=== PATIENT | male | born 1990 | race Caucasian/White ===

== ENCOUNTER → 2017-01-30 | Outpatient (CLI) | payer BC ==
--- NOTE | 2017-01-30 07:41 | DIAGNOSTIC IMAGING REPORT ---
ABDOMINAL ULTRASOUND, RIGHT UPPER QUADRANT HISTORY: Right upper quadrant abdominal pain. Loose stools. COMPARISON: None. FINDINGS: Liver is sonographically normal. There is no biliary ductal dilatation. The common bile duct measures 3 mm in caliber. The gallbladder is normal. There are no gallstones. No pancreatic abnormality is are present. There is no right hydronephrosis. IMPRESSION: No significant abnormality identified within the right upper quadrant. Electronically signed by: Neel Hoang M.D. 01/30/2017 7:40 AM Dictated Date/Time: 01/30/2017 7:39 AM
== END | disposition home or self-care (01) ==
LOC: C.ULTR 06:38
PROVIDERS: ATTEND Nurse Practitioner Family
DX: R10.11 Right upper quadrant pain (principal); R19.5 Other fecal abnormalities